=== PATIENT | female | born 1975 | race Caucasian/White ===

== ENCOUNTER → 2019-01-21 | Outpatient (CLI) | payer OTHER, SELFPAY ==
--- NOTE | 2019-01-21 15:38 | VDLE_ITS ---
Reason For Study: LLE Pain/Swelling RIGHT LEFT CFV is compressible, spontaneous, phasic, GSV is normal. competent and demonstrates normal CFV is compressible, spontaneous, phasic, augmentation. competent, and demonstrates normal Procedure augmentation. Exam performed in department. FV is compressible, spontaneous, phasic, A preliminary report was called and/or faxed competent and demonstrates normal to Courtney Lopez CROP RESEARCH SCIENTIST. augmentation. POP V is compressible, spontaneous, phasic, competent and demonstrates normal augmentation. T/P Trunk is compressible. PTV is compressible. LT PerV is compressible. Interpretation Summary Deep veins of the left lower extremity are patent and compressible segmentally. There is no evidence of left lower extremity deep vein thrombosis. Valvular competence appears intact within the proximal deep venous system on the left . The left greater saphenous vein appears patent and compressible segmentally. Ordering Physician: Courtney Lopez Referring Physician: Courtney Lopez INSTRUMENT LENS INSPECTOR Performed By: Audra Tsang, YUMIKO, RVT
== END | disposition home or self-care (01) ==
LOC: CVS 15:31
PROVIDERS: Referring Provider Nurse Practitioner; Visit Provider Nurse Practitioner
DX: M79.89 Other specified soft tissue disorders (principal); M79.662 Pain in left lower leg; D68.62 Lupus anticoagulant syndrome
CPT/HCPCS: 93971

== ENCOUNTER 2019-06-10 01:48 | Emergency (ER) | payer OTHER, SELFPAY ==
[2019-06-10 01:49] VITALS: BP 136/86; PULSE 78; RESP 18; TEMP 36.9; O2SAT 97; BMI 39.2
[2019-06-10 01:53] VITALS: BP 136/86; PULSE 78; RESP 18; TEMP 36.9; O2SAT 97
--- NOTE | 2019-06-10 01:54 | ED.VIS.DENTA ---
History of Present Illness Chief Complaint: Dental Informant: Patient Onset: Days Context: Sudden Onset Timing: Continuous Quality: Pain Location: Upper teeth Current Severity: Mild Maximum Severity: Severe Worsened by: Chewing, cold liquids Relieved by: - - She states she is taking 1-2 ibuprofen tablets every 4 hours with no improvement. Associated Symptoms: Cold, - - She denied fever, facial swelling, rash or sensitivity to hot. Narrative: Patient is a 43-year-old woman who presents with dental pain that started yesterday. She states she has an appointment to see a dentist to have her teeth extracted. She denies fever or chills. She denies night sweats. She denies ocular, visual or auditory symptoms. She denies history rheumatic fever. States she has a heart murmur. She denies mitral valve prolapse. She is on no medications suppress her immune system and she denies IV drug use. She denies any facial swelling. She denies difficulty opening or closing her mouth completely. She denies change in voice. Prior similar symptoms: Yes Recent Illness/Hospitalization: No - Past Medical History (1) History of cardiac murmur Status: Acute Past Medical History - Allergies and Home Meds Allergies/Adverse Reactions: Allergies oxycodone [From OxyContin] Allergy (Verified 06/10/19 01:52) Rash Primary Care Physician: Care Physician,No Primary [Primary Care Provider] - Prior records reviewed: Yes Lives: Spouse/ Significant Other Smoking Status: Never smoker Alcohol: None Drugs: None Review of Systems General: Denies: Chills, Fever, Malaise, Subjective, Sweats, Weight loss, - Eyes: Denies: Visual changes - bilaterally, Blurred Vision - bilaterally ENT: Denies: Bilateral ear pain, Rhinorrhea, Sore throat Cardiovascular: Denies: Chest pain, Palpitations Respiratory: Denies: Dyspnea, Cough, Dyspnea on exertion Gastrointestinal: Denies: Nausea, Vomiting Musculoskeletal: Denies: Myalgias, Arthralgias, Neck pain, Back pain Skin: Denies: Rash, Wounds Neurological: Denies: Headache Hematologic: Denies: Easy bruising, Easy bleeding Allergy: Denies: Uticaria, Swelling of the mouth, Swelling of the tongue Physical Exam Vital Signs/Narrative: Vital Signs Temp Pulse Resp BP Pulse Ox 06/10/19 01:53 98.4 F 78 18 136/86 H 97 06/10/19 01:49 98.4 F 78 18 136/86 H 97 Inital Vital Signs reviewed: Yes General: Well nourished, Well developed, Unkempt Head: Normocephalic, Atraumatic ENT: Moist mucous membranes, Nasal congestion, No nasal trauma, No rhinorrhea, Sinus tenderness, TM's clear Mouth/Throat: Normal oral mucosa, Normal posterior oropharynx, No sublingual edema, Normal Stensen's duct, Gingivitis, Tenderness on tooth percussion, Widespread dental decay, - - Patient has numerous upper teeth right and left that have caries with exposure of dentin and several are eroded to the gumline. There is no evidence of periodontal abscess. There is no evidence of facial swelling or cellulitis.. Negative for: Normal inspection lips/gums, No dental tenderness, Apthous ulcer, Dental trauma, Focal gum swelling, Trismus Neck: Supple, No lymphadenopathy, Nontender, No JVD. Negative for: Anterior submandibular lymphadenopathy, Posterior submandibular lymphadenopathy, Anterior submental lymphadenopathy, Posterior submental lymphadenopathy, Soft tissue swelling, Submandibular soft tissue swelling, Submental soft tissue swelling Cardiovascular: Regular rate, Regular rhythm, No murmurs, Normal S1, Normal S2 Respiratory: No distress, CTA bilaterally, Chest nontender Extremities: Nontender, No edema Skin: Normal color, No rash. Negative for: Cyanosis, Diaphoresis, Jaundice, No Trauma Neurological: Alert, Oriented x3, Cranial nerves II-XII grossly intact, Normal Strength, Normal Sensation, Normal Gait Psychological: Normal affect Diagnostic/Tx/Re-eval - Medical Decision Making Patient has numerous caries with exposure of dentin and pulp. Since she reports sensitivity to cold she probably has reversible pulpitis as well. Suspect patient has dental caries. Will place on penicillin. She reports allergy to oxycodone. This limits pain medicine. Will treat with Naprosyn. She was instructed to contact dentist to have her appointment moved up. ED Disposition - Plan for ED Patient: Disposition: Home or Assisted Living Diagnosis: Reversible pulpitis, Dental caries extending into pulp, Dental caries extending into dentin, Apical alveolar abscess Instructions: Dental Abscess, Dental Cavity Prescriptions: Naproxen [Naprosyn] 500 mg PO BID #20 tab Prescription Printed Penicillin V Potassium 500 mg PO 4X/DAY #40 tab Prescription Printed Referrals: Care Physician,No Primary [Primary Care Provider] - Additional Instructions: Contact dentist is ask if the appointment can be moved up. Take medication as directed until gone. If you develop facial swelling, redness or difficulty opening or closing her mouth completely return to the emergency department immediately.
[2019-06-10] MEDS: Penicillin Vk 250 MG Tablet 500 MG PO (02:09)
[2019-06-10] MEDS: Naproxen 250 MG Tablet 500 MG PO (02:09)
== END 2019-06-10 02:15 | disposition home or self-care (01) ==
LOC: ED 02:15
PROVIDERS: Emergency Provider Emergency Medicine
DX: K04.7 Periapical abscess without sinus (principal); K04.01 Reversible pulpitis; K02.9 Dental caries, unspecified
CPT/HCPCS: 99283

== ENCOUNTER 2019-09-28 13:56 | Emergency (ER) | payer OTHER, SELFPAY ==
[2019-09-28 13:58] VITALS: BP 131/82; PULSE 81; RESP 16; TEMP 36.9; BMI 38.9
--- NOTE | 2019-09-28 14:17 | ED.VISSUMM ---
- ER Visit Summary Date of Service: 09/28/19 Chief Complaint: Dental pain History of Present Illness: The patient is a 43 F who presents with left upper dental pain that has been getting worse since yesterday. Patient states she went to an urgent care yesterday and was given a prescription for Pen-Vee K. Patient states that today she feels like the swelling is getting worse. Patient is concerned that she may be allergic to the penicillin. Patient denies any fevers or chills. Patient denies any difficulty breathing or difficulty swallowing. Physical Examination: Vital signs are stable. Patient is afebrile here. Patient is in no acute distress. Oral mucosa is pink and moist. Oropharynx is clear. There are multiple dental caries noted. There is no abscess formation. There is tenderness over the left maxillary area. There is no sublingual edema or signs of Magen angina. Neck is supple. Trachea is midline. There is no JVD or lymphadenopathy noted. Heart was regular rate and rhythm. Lungs are clear and equal bilaterally. Abdomen is soft and nontender. Cranial nerves II through XII are intact. There are no focal motor or sensory deficits noted. Emergency Department Course and Treatment: Patient was given an injection of Toradol here. Patient was instructed to continue her Pen-Vee K as previously prescribed. It is too early in the course to change antibiotics at this time. Patient was advised that this is not an allergic reaction, it is a progression of the infection. Patient was instructed to continue Tylenol or ibuprofen as needed for pain. Patient was instructed to follow-up with her dentist in 5 to 7 days. Patient understood and was agreeable with the plan. All questions were answered. Disposition: Discharge home Impression: 1. Infected dental caries This note was generated with Pre[employer]ently dictation software. It may contain incorrect words, spelling, and punctuation that were not noted in review of the chart prior to signing ED Disposition - Plan for ED Patient: Disposition: Home or Assisted Living Diagnosis: Infected dental caries Instructions: Dental Cavity Referrals: Care Physician,No Primary [Primary Care Provider] - Dentist,Your [STAFF PHYSICIAN] - 3-5 Days
[2019-09-28] MEDS: Ketorolac 60 MG/2 ML Vial IM (14:24)
== END 2019-09-28 14:44 | disposition home or self-care (01) ==
LOC: ED 14:22
PROVIDERS: Emergency Provider Emergency Medicine
DX: K04.7 Periapical abscess without sinus (principal); E66.9 Obesity, unspecified
CPT/HCPCS: 96372; 99282

== ENCOUNTER 2020-01-11 18:42 | Emergency (ER) | payer OTHER, SELFPAY ==
[2020-01-11 18:43] VITALS: BP 121/71; PULSE 85; RESP 15; TEMP 36.7; O2SAT 96; BMI 39.5
--- NOTE | 2020-01-11 18:59 | CT_ITS ---
INDICATION: LT PINNA INFECTION -- LEFT EAR SWOLLEN/RED EXAMINATION: CT IAC TEMPORAL BONES - CT IACs W/ Contrast Injection TECHNIQUE:Routine noncontrast CT protocol was performed of the internal auditory canals and temporal bones. 2-D reformats were performed by the technologist. A radiation dose optimization technique was used for this scan. IV Contrast dosage and agent: None. COMPARISON: None. FINDINGS: RIGHT SIDE: No fracture. SUPERFICIAL SOFT TISSUES: Unremarkable. MASTOID AIR CELLS: Well aerated, unremarkable. EXTERNAL AUDITORY CANALS: Clear. MIDDLE EAR CAVITIES: Well aerated. Ossicles and scutum intact. INTERNAL AUDITORY CANALS: Unremarkable bilateral internal auditory canals. No osseous erosion or widening of the canal. INNER EAR: Unremarkable cochlea, vestibule and semicircular canals. LEFT SIDE: No fracture. SUPERFICIAL SOFT TISSUES: There is soft tissue swelling and subcutaneous stranding of the pinna and adjacent possibly in the parotid gland which is incompletely imaged but appears enlarged compared with the right. MASTOID AIR CELLS: Well aerated, unremarkable. EXTERNAL AUDITORY CANALS: Clear. MIDDLE EAR CAVITIES: Well aerated. Ossicles and scutum intact. INTERNAL AUDITORY CANALS: Unremarkable bilateral internal auditory canals. No osseous erosion or widening of the canal. INNER EAR: Unremarkable cochlea, vestibule and semicircular canals. VISUALIZED BRAIN AND POSTERIOR FOSSA: Cerebello-pontine angles are unremarkable. CT/Orb Sella Post Fossa Ear W/CON IMPRESSION: Soft tissue swelling and inflammation left periauricular region possibly including the left parotid gland. No abscess. Clinical correlation required. Dedicated CT soft tissue neck may be helpful. Otherwise normal temporal bone. Electronically Signed: Demian Munguia MD at 20:02 EDT , Service support ,
--- NOTE | 2020-01-11 19:01 | ED.VIS.GEN ---
History of Present Illness Chief Complaint: Ear Problem Informant: Patient Onset: Days - 3- Context: Gradual Onset Timing: Continuous Quality: sore Location: left external ear Current Severity: Moderate Maximum Severity: Moderate Worsened by: palpation Relieved by: leaving alone Associated Symptoms: black spots behind ear now. not getting better on Abx. Narrative: Patient states she spontaneously developed pain, redness, swelling behind her left ear, she went to an ER in [place] and was empirically prescribed Augmentin and Bactrim that she has been taking for the third day now, and it seems to be getting worse. She denies any fevers or systemic symptoms. No discharge. No other symptoms. She called her doctor and was advised to come to this ER for reevaluation. She denies any problems inside of her ear or problems hearing. She is not a diabetic. 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 She states she has had no piercing in this left ear for the past 10 years. She denies any injury to this area recently or any obvious reason that could be related to the onset of symptoms there. - Past Medical History (1) History of cardiac murmur Status: Chronic Past Medical History - Allergies and Home Meds Allergies/Adverse Reactions: Allergies oxycodone [From OxyContin] Allergy (Verified 01/11/20 18:47) Rash Primary Care Physician: Kevyn Wu MD [Primary Care Provider] - Smoking Status: Never smoker Drugs: None Review of Systems General: Denies: Chills, Fever, Malaise, Sweats Eyes: Denies: Visual changes - bilaterally, Diplopia ENT: Reports: Left ear pain. Denies: Rhinorrhea, Sore throat Cardiovascular: Denies: Chest pain, Palpitations Respiratory: Denies: Dyspnea, Cough, Dyspnea on exertion Gastrointestinal: Denies: Abdominal pain, Nausea, Vomiting, Diarrhea, Melena, Hematochezia Genitourinary: Denies: Dysuria, Hematuria, Frequency Musculoskeletal: Denies: Back pain, Extremity Pain Skin: Reports: Rash - Left ear redness. Denies: Wounds Neurological: Denies: Headache, Weakness, Numbness Physical Exam Vital Signs/Narrative: Vital Signs Temp Pulse Resp BP Pulse Ox 01/11/20 18:43 98.1 F 85 15 121/71 H 96 Inital Vital Signs reviewed: Yes General: Well nourished, Well developed, Obese, No Acute Distress Head: Normocephalic, Atraumatic Eyes: Perrl, EOMI ENT: Moist mucous membranes, No rhinorrhea Neck: Supple, Nontender, No lymphadenopathy - Mild tender left posterior cervical lymphadenopathy only Respiratory: No distress Skin: Normal color, No Trauma, Rash - Mildly swollen tender erythema to the posterior aspect of the left ear pinna, mostly caudal, including the posterior aspect of the earlobe where there is an old healed up piercing. At the anterior aspect of the lobe, the exam is very benign and the healed wound appears to be uninvolved in the infection. However posterior to this, there are 3 or 4 subcentimeter very small spots of what appear to be black scab. They are separate from each other. There is no subcutaneous emphysema, obvious abscess, although just posterior and caudal to this, almost below the earlobe, there is continuation of the erythema with some mild induration but no fluctuance or obvious abscess, no pointing. The mastoid processes uninvolved and nontender. The rest of the pinna is uninvolved and benign. The tragus is uninvolved and nontender. Anteriorly, the ear almost looks normal except for mild erythema along the external rim of the pinna at the caudal aspect, which is the beginning of this process which is mostly posterior. The rest of the HEENT exam is unremarkable.. Negative for: No rash Neurological: Alert, Oriented x3, Cranial nerves II-XII grossly intact, Normal Strength, Normal Sensation, Normal Gait Psychological: Normal affect, Normal Mood Diagnostic/Tx/Re-eval - Medical Decision Making I think the patient is on appropriate antibiotics to empirically treat a focal skin infection that could be MRSA or strep. However she appears to potentially be failing this and she is on her third day of the medication. Therefore CT is thought to be reasonable of this area with IV contrast to rule out the possibility of an abscess, which is not obviously present clinically. In addition, she was empirically given vancomycin 15 mg/kg IV. She tolerated this well. Labs were normal as above, CT is consistent with cellulitis without any signs of an abscess. Given the involvement of tissues near the parotid gland, I evaluated this closer, she does not have tenderness of the parotid gland or swelling overlying this, and there is no discharge from Stensen's duct with massage of the gland. I think the patient is on adequate coverage for empiric cellulitis coverage, and I do not think she has necrotizing fasciitis. The cellulitis looks no different than it did at the beginning of her visit/initial evaluation. I discussed this with her. She is reassured and advised to continue the antibiotic she is on, and follow-up with ENT if things do not improve. She is comfortable with that plan. ED Disposition - Plan for ED Patient: Disposition: Home or Assisted Living Diagnosis: Cellulitis of left earlobe Instructions: ED Cellulitis Referrals: Kevyn Wu MD [Primary Care Provider] - Sven Hua MD [STAFF PHYSICIAN] - (or any of the other ENT doctors if not improving in 3-5 days) Additional Instructions: Continue your current antibiotics as prescribed until finished. He received vancomycin 15 mg/kg IV while in the emergency department, which will hopefully help resolve your infection.
[2020-01-11] MEDS: 0.9% Normal Saline 1,000 ML 999 ML IV (19:18)
[2020-01-11 19:31] LABS: Absolute Lymphocyte Count 1.36 X10^3/uL (0.83-4.51); Absolute Neutrophil Count 3.8 X10^3/uL (2.0-7.7); Basophil# 0.03 X10^3/uL; Basophil% 0.5 % (0-1); Eosinophil# 0.18 X10^3/uL; Hematocrit 40.8 % (37-47); Lymphocyte # 1.36 X10^3/ul (4.0); Lymphocyte % 22.9 % (19-41); Mean Corp Hgb Conc 34.3 g/dL (32-36); Mean Corpuscular Volume 90.5 fL (81-99); Monocyte% 10.1 % (0-10); NRBC Flagged by Analyzer 0 % (0-5); Neutrophil # 3.75 X10^3/uL (2.7-7.7); Neutrophil % 63.2 % (47-70); Platelet Count 160 K/mm3 (150-450); RBC Distribution Width CV 12.2 % (11.6-14.6); RBC Distribution Width SD 40.1 fl (35.1-43.9); Red Blood Count 4.51 M/mm3 (4.2-5.4); White Blood Count 5.9 K/mm3 (4.4-11.0)
[2020-01-11 19:32] LABS: Anion Gap 4 (5-15); BUN 14 mg/dL (7-18); Calcium,Total 8.5 mg/dL (8.5-10.1); Chloride 109 mmol/L (98-107); Creatinine, Serum 0.82 mg/dL (0.55-1.02); EST Glomerular Filtration Rate 80 mL/min (>60); Est Glom Filt Rate - Afr Amer 97 mL/min (>60); Glucose 100 mg/dL (74-106); Potassium 3.9 mmol/L (3.5-5.1); Sodium Level 139 mmol/L (136-145)
[2020-01-11 21:55] VITALS: BP 124/79; PULSE 72; RESP 16; O2SAT 97
[2020-01-11 22:41] VITALS: BP 124/79; PULSE 72; RESP 16; O2SAT 97
== END 2020-01-11 22:42 | disposition home or self-care (01) ==
PROVIDERS: Emergency Provider Emergency Medicine; PCP Internal Medicine
DX: H60.12 Cellulitis of left external ear (principal); Z79.2 Long term (current) use of antibiotics; E66.9 Obesity, unspecified
CPT/HCPCS: 70481; 80048; 85025; 96361; 96365; 96366; 99283; J7030; J7040; Q9967

== ENCOUNTER 2021-06-02 21:35 | Emergency (ER) | payer OTHER, SELFPAY ==
[2021-06-02 21:35] VITALS: BP 128/87; PULSE 92; RESP 18; TEMP 38.1; O2SAT 100; BMI 40.3
--- NOTE | 2021-06-02 22:08 | EKG12_ITS ---
Test Reason : DYSRYTHMIA Blood Pressure : / mmHG Vent. Rate : 092 BPM Atrial Rate : 092 BPM P-R Int : 172 ms QRS Dur : 088 ms QT Int : 360 ms P-R-T Axes : 034 -07 034 degrees QTc Int : 445 ms Normal sinus rhythm Normal ECG Confirmed by VILMA DIETZ, FORD ([id number]), society editor SHAYAN VILLAGOMEZ ([id number]) on 06/04/2021 8:39:59 AM Referred By: CHANELLE Confirmed By:FORD ESPARZA MD
--- NOTE | 2021-06-02 22:16 | EDS_ITS ---
HPI History of Present Illness Chief Complaint: General Illness Narrative Narrative: Patient presents with nausea, intermittent fevers and upper airway congestion for the past few days. She has no shortness of breath. She has an intermittent dry cough. No abdominal pain, no urinary symptoms. She has no neck pain or stiffness. No rash. She denies any abdominal pain nausea vomiting or diarrhea. [facility], [facility] Home Medications NK 06/02/21 [History Last Taken Unknown] Allergy/AdvReac Type Severity Reaction Status Date / Time oxycodone [From OxyContin] Allergy Rash Verified 06/02/21 21:37 Surgical History (Updated 06/02/21 @ 22:14 by Ledy Jennings) History of hysterectomy Social History Smoking Status: Never smoker ROS ROS ED ROS Narrative Past medical history: Reviewed Medications: Reviewed Social history: Noncontributory Review of systems: All systems negative except as indicated General: Fever as in HPI Eyes: No visual changes ENT: Upper airway congestion as in HPI Neck: No neck pain Cardiovascular: No chest pain Respiratory: No shortness of breath or cough Gastrointestinal: No abdominal pain. Some nausea. Genitourinary: No dysuria Musculoskeletal: Denies myalgias no difficulty with ambulation Skin: No rash Neurological: No memory loss, confusion or any focal weakness Psych: No recent behavioral changes Hematologic: No easy bleeding or easy bruising EXAM Physical Exam Narrative Exam Narrative: Physical exam General: Patient appears relatively comfortable. Head: Normocephalic, Atraumatic Eyes: Conjunctiva not pale ENT: Moist mucous membranes. There is some upper airway congestion and rhinorrhea, slightly swollen nasal turbinates and some postnasal drip. Soft palate is normal. Neck: Supple, Nontender, No lymphadenopathy Cardiovascular: Regular rate, Regular rhythm Respiratory: No distress, CTA bilaterally Abdomen: Soft, Nontender, Nondistended Back: Nontender, Normal Inspection. Negative for: CVA tenderness Extremities: Nontender, No edema Skin: Normal color, No rash Neurological: Alert, Normal Strength, Normal Sensation Psychological: Normal affect Const Vital Signs: 06/02/21 21:35 06/02/21 22:16 Temperature 100.5 F H Temperature Source Temporal Pulse Rate 92 Respiratory Rate 18 Respiratory Effort Normal Non-Labored Respiratory Pattern Normal Blood Pressure 128/87 H Blood Pressure Mean 100 Pulse Ox 100 Oxygen Delivery Method Room Air MDM MDM MDM Narrative Medical decision making narrative: Patient is found to have COVID-19. She otherwise appears well. She is not desaturating. I believe she can be safely discharged home. If anything worsen she is to return. She is told to stay off work and to call her employer since it is likely that she got Covid from her job especially that she tells me she works 7 days a week for 12-hour shifts. Lab Data Labs: Laboratory Results - last 24 hr 06/02/21 06/02/21 06/02/21 22:20 22:20 23:00 WBC Cancelled 5.0 Corrected WBC Cancelled RBC Cancelled 4.41 Hgb Cancelled 13.5 Hct Cancelled 39.8 MCV Cancelled 90.2 MCH Cancelled 30.6 MCHC Cancelled 33.9 RDW Std Deviation Cancelled 41.6 RDW Coeff of Ángela Cancelled 12.5 Plt Count Cancelled 111 L MPV Cancelled 11.9 Immature Gran % (Auto) Cancelled 1.200 H Neut % (Auto) Cancelled 71.9 H Lymph % (Auto) Cancelled 17.5 L [place] % (Auto) Cancelled 7.6 Eos % (Auto) Cancelled 1.4 Baso % (Auto) Cancelled 0.4 Absolute Neuts (auto) Cancelled 3.6 Absolute Lymphs (auto) Cancelled 0.87 Total Counted Cancelled Neutrophils % (Manual) Cancelled Band Neutrophils % Cancelled Lymphocytes % (Manual) Cancelled Monocytes % (Manual) Cancelled Eosinophils % (Manual) Cancelled Basophils % (Manual) Cancelled Metamyelocytes % Cancelled Myelocytes % Cancelled Promyelocytes % Cancelled Blast Cells % Cancelled Plasma Cell % (Manual) Cancelled Other Cells % Cancelled Nucleated RBC % Cancelled 0 Nucleated RBCs/100 WBC Cancelled Differential Comment Cancelled Diff Path Review Cancelled Hypersegmented Neuts Cancelled Atypical Lymphocytes Cancelled Reactive Lymphocytes Cancelled Smudge Cells Cancelled Toxic Granulation Cancelled Toxic Vacuolation Cancelled Dohle Bodies Cancelled Karina Rods Cancelled Platelet Estimate Cancelled Plt Morphology Comment Cancelled RBC Morphology Cancelled Polychromasia Cancelled Hypochromasia Cancelled Poikilocytosis Cancelled Basophilic Stippling Cancelled Anisocytosis Cancelled Microcytosis Cancelled Macrocytosis Cancelled Spherocytes Cancelled Sickle Cells Cancelled Target Cells Cancelled Tear Drop Cells Cancelled Ovalocytes Cancelled Stomatocytes Cancelled Velazquez-[place] Bodies Cancelled Alysia Cells Cancelled Bite Cells Cancelled Crenated Cell Cancelled Acanthocytes (Spur) Cancelled Rouleaux Cancelled Schistocytes Cancelled Sodium 138 Potassium 3.5 Chloride 105 Carbon Dioxide 28.0 Anion Gap 5 BUN 7 Creatinine 0.65 Estim Creat Clear Calc 109.09 Est GFR (MDRD) Af Amer 127 Est GFR (MDRD) Non-Af 105 BUN/Creatinine Ratio 10.8 Glucose 109 H Calcium 8.3 L Total Bilirubin 0.30 AST 21 ALT 34 Alkaline Phosphatase 80 Total Protein 7.6 Albumin 3.5 Globulin 4.1 Albumin/Globulin Ratio 0.9 Urine Color Urine Clarity Urine pH Ur Specific [place] Urine Protein Urine Glucose (UA) Urine Ketones Urine Occult Blood Urine Nitrite Urine Bilirubin Urine Urobilinogen Ur Leukocyte Esterase Urine RBC Urine WBC Ur Squamous Epith Cells Urine Bacteria Urine Mucus 06/02/21 23:25 WBC Corrected WBC RBC Hgb Hct MCV MCH MCHC RDW Std Deviation RDW Coeff of Ángela Plt Count MPV Immature Gran % (Auto) Neut % (Auto) Lymph % (Auto) [place] % (Auto) Eos % (Auto) Baso % (Auto) Absolute Neuts (auto) Absolute Lymphs (auto) Total Counted Neutrophils % (Manual) Band Neutrophils % Lymphocytes % (Manual) Monocytes % (Manual) Eosinophils % (Manual) Basophils % (Manual) Metamyelocytes % Myelocytes % Promyelocytes % Blast Cells % Plasma Cell % (Manual) Other Cells % Nucleated RBC % Nucleated RBCs/100 WBC Differential Comment Diff Path Review Hypersegmented Neuts Atypical Lymphocytes Reactive Lymphocytes Smudge Cells Toxic Granulation Toxic Vacuolation Dohle Bodies Karina Rods Platelet Estimate Plt Morphology Comment RBC Morphology Polychromasia Hypochromasia Poikilocytosis Basophilic Stippling Anisocytosis Microcytosis Macrocytosis Spherocytes Sickle Cells Target Cells Tear Drop Cells Ovalocytes Stomatocytes Velazquez-[place] Bodies Alysia Cells Bite Cells Crenated Cell Acanthocytes (Spur) Rouleaux Schistocytes Sodium Potassium Chloride Carbon Dioxide Anion Gap BUN Creatinine Estim Creat Clear Calc Est GFR (MDRD) Af Amer Est GFR (MDRD) Non-Af BUN/Creatinine Ratio Glucose Calcium Total Bilirubin AST ALT Alkaline Phosphatase Total Protein Albumin Globulin Albumin/Globulin Ratio Urine Color Yellow Urine Clarity Clear Urine pH 7.0 Ur Specific [place] 1.015 Urine Protein Negative Urine Glucose (UA) Normal Urine Ketones Negative Urine Occult Blood Negative Urine Nitrite Negative Urine Bilirubin Negative Urine Urobilinogen Normal Ur Leukocyte Esterase Negative Urine RBC 0 SEEN Urine WBC 0 SEEN Ur Squamous Epith Cells 0 SEEN Urine Bacteria RARE Urine Mucus 0 SEEN Radiography Diagnostic Testing: Radiology Impression Chest X-Ray 06/02/21 22:40 IMPRESSION: There is mild bibasilar listhesis/infiltrate. There is no focal consolidation identified. Electronically Signed: Puneet Owens MD at 23:09 EDT Tel , Service support , Discharge Plan Triage Chief Complaint: General Illness ED Provider: Germán Lugo Dx/Rx/DC Orders Clinical Impression: COVID Instructions: Coronavirus Disease 2019 (COVID-19): Overview Prescriptions: No Action NK RF: 0 Primary Care Provider: Kevyn Wu Referrals: Kevyn Wu MD [Primary Care Provider] - 2 Days Disposition Disposition: Home, Self Care
[2021-06-02] MEDS: 0.9% Normal Saline 1,000 ML 1000 ML IV (22:36)
[2021-06-02] MEDS: Ondansetron 4 MG/2 ML Vial IV (22:36)
--- NOTE | 2021-06-02 22:40 | RAD_ITS ---
STUDY: X-RAY CHEST REASON FOR EXAM: Female, 45 years old. cough TECHNIQUE: Single frontal view of the chest. COMPARISON: None. FINDINGS: Low lung volumes. No pneumothorax or pleural effusion. Mild bibasilar atelectasis. Normal size heart. Normal mediastinum and libertad. Normal visualized pulmonary arteries. Normal visualized aortic arch and descending thoracic aorta. There are diffuse degenerative changes of the visualized thoracic spine. Scoliotic curvature to the spine. There is no demonstrated abnormality of the visualized soft tissue structures of the upper abdomen. RAD/Chest 1 View (Portable) IMPRESSION: There is mild bibasilar listhesis/infiltrate. There is no focal consolidation identified. Electronically Signed: Puneet Owens MD at 23:09 EDT Tel , Service support ,
[2021-06-02 22:53] LABS: ALB/GLOB Ratio 0.9 RATIO (0.9-2.4); AST(SGOT) 21 U/L (15-37); Alanine Aminotransfer ALT/SGPT 34 U/L (13-56); Albumin, Serum 3.5 g/dL (3.2-5.0); Alkaline Phosphatase 80 U/L (45-117); Anion Gap 5 (5-15); BUN 7 mg/dL (7-18); BUN/Creat Ratio 10.8 RATIO (10-20); Calcium,Total 8.3 mg/dL (8.5-10.1); Chloride 105 mmol/L (98-107); Creatinine, Serum 0.65 mg/dL (0.55-1.02); EST Glomerular Filtration Rate 105 mL/min (>60); Est Glom Filt Rate - Afr Amer 127 mL/min (>60); Estimated Creatinine Clearance 109.09 ml/min; Globulin 4.1 g/dL (2.2-4.2); Glucose 109 mg/dL (74-106); Potassium 3.5 mmol/L (3.5-5.1); Protein, Total 7.6 g/dL (6.4-8.2); Sodium Level 138 mmol/L (136-145)
[2021-06-02 23:30] LABS: Mucous, Urine 0 SEEN /hpf (<or=2+); Red Blood Cells-Urine 0 SEEN /hpf (0-5); Squamous Epithelial Cells - UA 0 SEEN /hpf (5-10); White Blood Cells 0 SEEN /hpf (0-5)
[2021-06-02 23:38] LABS: Absolute Lymphocyte Count 0.87 X10^3/uL (0.83-4.51); Absolute Neutrophil Count 3.6 X10^3/uL (2.0-7.7); Basophil# 0.02 X10^3/uL; Basophil% 0.4 % (0-1); Eosinophil# 0.07 X10^3/uL; Eosinophils% 1.4 % (0-5); Hematocrit 39.8 % (37-47); Hemoglobin 13.5 g/dL (12.0-15.0); Lymphocyte # 0.87 X10^3/ul (0.83-4.51); Lymphocyte % 17.5 % (19-41); Mean Corp Hgb Conc 33.9 g/dL (32-36); Mean Corpuscular Hgb 30.6 pg (27.0-32.0); Mean Corpuscular Volume 90.2 fL (81-99); Mean Platelet Vol. 11.9 fl (6.2-12.0); Monocyte# 0.38 X10^3/uL; Monocyte% 7.6 % (0-10); NRBC Flagged by Analyzer 0 % (0-5); Neutrophil # 3.58 X10^3/uL (2.7-7.7); Neutrophil % 71.9 % (47-70); Platelet Count 111 K/mm3 (150-450); RBC Distribution Width CV 12.5 % (11.6-14.6); RBC Distribution Width SD 41.6 fl (35.1-43.9); Red Blood Count 4.41 M/mm3 (4.2-5.4)
[2021-06-02 23:39] LABS: Color, Urine Yellow (Yellow); Glucose, Dipstick Normal (Normal); Ketone-Dipstick Negative (Negative); Leukocyte Esterase-Dipstick Negative /ul (Negative); Nitrite-Dipstick Negative (Negative); Occult Blood-Urine Negative /ul (Negative); Protein-Dipstick Negative (Negative); Specific Gravity, Urine 1.015 (1.002-1.030); Urine Bilirubin Dipstick Negative (Negative); Urine Clarity Clear (Clear); Urine Urobilinogen Normal (Normal)
[2021-06-02 23:45] LABS: Bacteria RARE /hpf (None Seen)
[2021-06-03 00:20] VITALS: BP 134/99; PULSE 89; RESP 15; O2SAT 96
== END 2021-06-03 00:21 | disposition home or self-care (01) ==
PROVIDERS: Emergency Provider Emergency Medicine; PCP Internal Medicine
DX: U07.1 COVID-19 (principal)
CPT/HCPCS: 71045; 80053; 81001; 85025; 87426; 93005; 96361; 96374; 99283; J2405

== ENCOUNTER 2021-06-07 00:18 | Emergency (ER) | payer OTHER, SELFPAY ==
[2021-06-07] VITALS (7 sets, daily range): BP systolic 115–123; BP diastolic 68–72; PULSE 83–90; RESP 21–27; TEMP 37.6; O2SAT 91–95; BMI 39.1
--- NOTE | 2021-06-07 00:28 | EKG12_ITS ---
Test Reason : SOB Blood Pressure : / mmHG Vent. Rate : 086 BPM Atrial Rate : 086 BPM P-R Int : 164 ms QRS Dur : 090 ms QT Int : 384 ms P-R-T Axes : 038 -03 036 degrees QTc Int : 459 ms Normal sinus rhythm Normal ECG Confirmed by MIKE DIETZ, XAVIER ([id number]), avid editor SHAYAN VILLAGOMEZ ([id number]) on 06/11/2021 8:22:45 AM Referred By: PL Confirmed By:KATEY MCKEON MD
[2021-06-07 00:37] LABS: Absolute Lymphocyte Count 1.34 X10^3/uL (0.83-4.51); Absolute Neutrophil Count 2.6 X10^3/uL (2.0-7.7); Basophil# 0.01 X10^3/uL; Basophil% 0.2 % (0-1); Eosinophil# 0.01 X10^3/uL; Eosinophils% 0.2 % (0-5); Hemoglobin 14.4 g/dL (12.0-15.0); Lymphocyte # 1.34 X10^3/ul (0.83-4.51); Lymphocyte % 30.8 % (19-41); Mean Corp Hgb Conc 34.3 g/dL (32-36); Mean Corpuscular Hgb 30.2 pg (27.0-32.0); Mean Corpuscular Volume 88.1 fL (81-99); Mean Platelet Vol. 11.9 fl (6.2-12.0); Monocyte# 0.39 X10^3/uL; NRBC Flagged by Analyzer 0 % (0-5); Neutrophil # 2.59 X10^3/uL (2.7-7.7); Neutrophil % 59.6 % (47-70); Platelet Count 119 K/mm3 (150-450); RBC Distribution Width CV 12.3 % (11.6-14.6); Red Blood Count 4.77 M/mm3 (4.2-5.4); White Blood Count 4.4 K/mm3 (4.4-11.0)
[2021-06-07] MEDS: Ipratropium/Albuterol Sulfate 3 ML AMPUL.NEB INHALATION (00:39)
--- NOTE | 2021-06-07 00:43 | RAD_ITS ---
STUDY: X-RAY CHEST REASON FOR EXAM: Female, 45 years old. covid, SOB TECHNIQUE: Single AP portable view of the chest. COMPARISON: None. FINDINGS: Ill-defined subpleural groundglass opacities are seen more prominent in the lung bases , may represent atypical pneumonia or viral pneumonia (COVID-19 ?). There is no demonstrated pleural abnormality. Normal size heart. Normal mediastinum and libertad. Normal visualized pulmonary arteries. Normal visualized aortic arch and descending thoracic aorta. Normal visualized thoracic spine. Normal visualized ribs, clavicles, and shoulders. There is no demonstrated abnormality of the visualized soft tissue structures of the upper abdomen. RAD/Chest 1 View (Portable) IMPRESSION: Ill-defined subpleural groundglass opacities are seen more prominent in the lung bases , may represent atypical pneumonia or viral pneumonia (COVID-19 ?). Electronically Signed: Lazaro Cody MD at 1:33 EDT Tel , Service support ,
--- NOTE | 2021-06-07 00:48 | ED.VIS.DYS ---
HPI History of Present Illness Chief Complaint: Shortness of Breath Informant: patient Narrative Narrative: Of note, patient somewhat difficult to get the history from. He first told me that she did not and never had any medical problems. On review of systems I started discovering that she had a heart problem as a child. 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 The last time this was done she was about 29 years old. She also had a DVT after 1 of these procedures and was on unknown anticoagulation for an unknown period of time. Currently she is on no medicines. She is told me at first she had no nausea and vomiting but then stated she could not keep anything down and does have nausea and is vomiting. Patient started with symptoms of fevers myalgias and congestion about 7 days ago. She has been diagnosed with positive Covid. I think she might have had some vomiting but I am still not 100% sure. She does state that she is nauseated now though. She does state that her appetite is down and she is not eating and drinking much. She is had diarrhea. She also has cough. She does admit to being short of breath. She does not have chest pain. She did not get vaccinated. She is not familiar with monoclonal antibody treatment. PFSH PFS Home Medications ondansetron 4 mg PO Q8H PRN #10 tab 06/07/21 [Rx Last Taken Unknown] Allergy/AdvReac Type Severity Reaction Status Date / Time oxycodone [From OxyContin] Allergy Rash Verified 06/07/21 00:19 Surgical History History of hysterectomy Social History Smoking Status: Never smoker ROS ROS ED Constitutional Constitutional ED: Reports chills, fever(s) and sweats Eyes Eyes: Denies change in vision ENT ENT ED: Reports rhinorrhea; Denies sore throat Cardiovascular Cardiovascular: Denies chest pain, palpitations or racing heartbeat Respiratory/Chest Respiratory/Chest: Reports cough and dyspnea; Denies dyspnea on exertion or sputum Gastrointestinal Gastrointestinal: Reports diarrhea, nausea, vomiting and other Details: History is consistent on diarrhea. It is relatively consistent on nausea. I am not sure if she is actually had vomiting. ; Denies abdominal pain Genitourinary Genitourinary ED: Denies dysuria Musculoskeletal Musculoskeletal: Reports myalgias Integumentary Denies rash Neurologic Neurologic: Denies headache(s), paresthesias or weakness Endocrine Endocrinology: Denies polydipsia or polyuria Hematologic/Lymphatic Hematologic/Lymphatic: Denies easy bruising Allergic/Immunologic Allergic/Immunologic ED: Denies urticaria EXAM Physical Exam Const Vital Signs: 06/07/21 00:19 06/07/21 00:21 06/07/21 00:23 Temperature 99.7 F H 99.7 F H Temperature Source Temporal Temporal Pulse Rate 90 90 Respiratory Rate 21 H 21 H Respiratory Effort Short of Breath Labored Respiratory Pattern Blood Pressure 123/72 H 123/72 H Blood Pressure Mean 89 89 Pulse Ox 91 91 Oxygen Delivery Method Room Air Room Air Room Air 06/07/21 00:38 06/07/21 02:29 06/07/21 03:17 Temperature Temperature Source Pulse Rate 83 84 86 Respiratory Rate 22 H 27 H 27 H Respiratory Effort Respiratory Pattern Tachypnea Blood Pressure 115/68 118/72 Blood Pressure Mean 83 Pulse Ox 93 95 Oxygen Delivery Method Positive well nourished, well developed and obese General Appearance ED: well developed and NAD Nutritional Appearance: obese HEENT atraumatic Eyes PERRL Neck no lymphadenopathy and supple Neck Narrative: No stridor. Resp normal respiratory effort Resp Narrative: She does have a few coarse breath sounds bilaterally. Possibly a slight expiratory wheeze. It is gone with the respiratory treatment. Cardio regular rate, regular rhythm and no murmurs Cardio Narrative: By her history, I do not hear any murmur. GI non-tender and non-distended Palpation: soft Back/Spine no CVA tenderness Extremity normal to inspection General Extremety ED: Negative for tenderness Neuro oriented x3 Sensorium / Orientation: alert Psych mental status grossly normal MDM MDM MDM Narrative Medical decision making narrative: Blood work shows normal CBC. Electrolytes showed minimally during crease potassium. Lactate was normal. LFTs normal. D-dimer was mildly elevated. Considering she has Covid, dyspnea, history of DVT and elevated D-dimer we did do a CT scan of the chest. This showed findings consistent with Covid but no indication of acute pulmonary embolus. Patient saturations are running 94 5% in the room on room air. We walked her. She stayed between 91 and 94%. She did not drop but she would just go up and down between those 2. At this point, I do not see an indication to admit her. She is able to eat and drink. She has had some nausea. I will get her some meds for this. I also talked with her about monoclonal antibodies. I talked to her about this on my last visit and my first visit. I think she is somebody who could benefit. I will put in this order. Lab Data Labs: Laboratory Results - last 24 hr 06/07/21 06/07/21 06/07/21 00:22 00:22 00:35 WBC 4.4 RBC 4.77 Hgb 14.4 Hct 42.0 MCV 88.1 MCH 30.2 MCHC 34.3 RDW Std Deviation 40.0 RDW Coeff of Ángela 12.3 Plt Count 119 L MPV 11.9 Immature Gran % (Auto) 0.200 Neut % (Auto) 59.6 Lymph % (Auto) 30.8 Morehouse % (Auto) 9.0 Eos % (Auto) 0.2 Baso % (Auto) 0.2 Absolute Neuts (auto) 2.6 Absolute Lymphs (auto) 1.34 Nucleated RBC % 0 D-Dimer Quant (PE/DVT) Sodium 137 Potassium 2.9 L Chloride 104 Carbon Dioxide 28.0 Anion Gap 5 BUN 6 L Creatinine 0.60 Estim Creat Clear Calc 118.19 Est GFR (MDRD) Af Amer 138 Est GFR (MDRD) Non-Af 114 BUN/Creatinine Ratio 10.0 Glucose 113 H Lactic Acid 0.8 Calcium 8.3 L Total Bilirubin 0.40 AST 32 ALT 37 Alkaline Phosphatase 63 Troponin I High Sens 7 Total Protein 7.7 Albumin 3.2 Globulin 4.5 H Albumin/Globulin Ratio 0.7 L 06/07/21 00:45 WBC RBC Hgb Hct MCV MCH MCHC RDW Std Deviation RDW Coeff of Ángela Plt Count MPV Immature Gran % (Auto) Neut % (Auto) Lymph % (Auto) Morehouse % (Auto) Eos % (Auto) Baso % (Auto) Absolute Neuts (auto) Absolute Lymphs (auto) Nucleated RBC % D-Dimer Quant (PE/DVT) 0.59 H* Sodium Potassium Chloride Carbon Dioxide Anion Gap BUN Creatinine Estim Creat Clear Calc Est GFR (MDRD) Af Amer Est GFR (MDRD) Non-Af BUN/Creatinine Ratio Glucose Lactic Acid Calcium Total Bilirubin AST ALT Alkaline Phosphatase Troponin I High Sens Total Protein Albumin Globulin Albumin/Globulin Ratio Radiography Diagnostic Testing: Radiology Impression Chest X-Ray 06/07/21 00:43 IMPRESSION: Ill-defined subpleural groundglass opacities are seen more prominent in the lung bases , may represent atypical pneumonia or viral pneumonia (COVID-19 ?). Electronically Signed: Lazaro Cody MD at 1:33 EDT Tel , Service support , Chest CTA 06/07/21 01:35 IMPRESSION: 1. Patchy multilobar pulmonary infiltrates, with peripheral groundglass opacities. Findings are consistent with pneumonia, with typical features of COVID 19 infection. 2. No evidence of pulmonary embolism, but small segmental pulmonary emboli in the lower lobes are not excluded due to artifact caused by patient respiratory motion. 3. Cardiomegaly and evidence of chronic pulmonary arterial hypertension. Individualized dose optimization techniques were used for this CT. at 0250 Reported and signed by: Kristopher Pacheco MD Electronically Signed: Kristopher Pacheco MD at 2:49 EDT Tel , Service support , EKG Initial EKG: Comments: EKG done for dyspnea read by me shows a sinus rhythm with a rate of 86. No ventricular ectopy. No acute ST elevation or depression. AR interval, QRS duration and QTc are normal. Discharge Plan Triage Chief Complaint: Shortness of Breath ED Provider: Wang Mcginnis Dx/Rx/DC Orders Clinical Impression: COVID Instructions: Caring for Someone Who Has COVID-19 Prescriptions: New ondansetron 4 mg tablet,disintegrating 4 mg PO Q8H PRN (Reason: nausea and vomiting) Qty: 10 RF: 0 Other Ambulatory Orders: COVID Outpatient Monoclonal Antibody Referral (Routine) Location: None Selected Ordered By: Dr. Wang Mcginnis Primary Care Provider: Kevyn Wu Referrals: Kevyn Wu MD [Primary Care Provider] - 3-5 Days if not improving Disposition Disposition: Home, Self Care Discharge Date/Time: 06/07/21 03:21
[2021-06-07] MEDS: Ondansetron 4 MG/2 ML Vial IV (00:59)
[2021-06-07 01:00] LABS: ALB/GLOB Ratio 0.7 RATIO (0.9-2.4); AST(SGOT) 32 U/L (15-37); Alanine Aminotransfer ALT/SGPT 37 U/L (13-56); Albumin, Serum 3.2 g/dL (3.2-5.0); Alkaline Phosphatase 63 U/L (45-117); Anion Gap 5 (5-15); BUN 6 mg/dL (7-18); Calcium,Total 8.3 mg/dL (8.5-10.1); Chloride 104 mmol/L (98-107); EST Glomerular Filtration Rate 114 mL/min (>60); Est Glom Filt Rate - Afr Amer 138 mL/min (>60); Estimated Creatinine Clearance 118.19 ml/min; Globulin 4.5 g/dL (2.2-4.2); Glucose 113 mg/dL (74-106); Potassium 2.9 mmol/L (3.5-5.1); Protein, Total 7.7 g/dL (6.4-8.2); Sodium Level 137 mmol/L (136-145); Troponin-I HS 7 pg/mL (3.0-54.0)
[2021-06-07 01:11] LABS: Lactic Acid 0.8 mmol/L (0.4-1.9)
[2021-06-07 01:29] LABS: D-Dimer Quantitative (DVT/PE) 0.59 FEU/ug/m (0.27-0.49)
--- NOTE | 2021-06-07 01:35 | CT_ITS ---
EXAM: CT ANGIOGRAPHY CHEST WITHOUT AND WITH INTRAVENOUS CONTRAST : 1975 CLINICAL INDICATION: SOB, elevated D-Dimer -- ? PE TECHNIQUE: Helically acquired angiography images were obtained of the chest without and with intravenous contrast. This CT exam was performed using one or more of the following dose reduction techniques: automated exposure control, adjustment of the mA and/or kV according to patient size, and/or use of iterative reconstruction technique. This report was created using [employer] report generation technology. MIP reconstructed images were created and reviewed. CONTRAST: IV 100mL [id number] COMPARISON: None. FINDINGS: PULMONARY ARTERIES: No evidence of pulmonary embolism, but small segmental pulmonary emboli in the lower lobes are not excluded due to artifact caused by patient respiratory motion. Chronic enlargement of the central pulmonary arteries. AORTA: Unremarkable. Normal in caliber. No evidence of dissection. GREAT VESSELS OF AORTIC ARCH: Unremarkable. Normal in caliber. No evidence of dissection. LUNGS AND PLEURAL SPACES: Patchy multilobar pulmonary infiltrates, with peripheral groundglass opacities. No mass. No pleural effusion or thickening. No pneumothorax. HEART: Mild cardiomegaly. No pericardial effusion. No signs of right heart strain, ratio of right ventricle to left ventricle measures less than 1. MEDIASTINUM: Unremarkable. No mediastinal or hilar adenopathy. Esophagus is unremarkable. No hiatal hernia. THYROID: Unremarkable. No thyroid lesions. BONES/JOINTS: Diffuse degenerative changes of the spine. No suspicious lytic or blastic abnormality. CT/CTA Chest W/WO Contrast IMPRESSION: 1. Patchy multilobar pulmonary infiltrates, with peripheral groundglass opacities. Findings are consistent with pneumonia, with typical features of COVID 19 infection. 2. No evidence of pulmonary embolism, but small segmental pulmonary emboli in the lower lobes are not excluded due to artifact caused by patient respiratory motion. 3. Cardiomegaly and evidence of chronic pulmonary arterial hypertension. Individualized dose optimization techniques were used for this CT. at 0250 Reported and signed by: Kristopher Pacheco MD Electronically Signed: Kristopher Pacheco MD at 2:49 EDT Tel , Service support ,
== END 2021-06-07 03:21 | disposition home or self-care (01) ==
PROVIDERS: Emergency Provider Emergency Medicine; PCP Internal Medicine
DX: U07.1 COVID-19 (principal); E66.9 Obesity, unspecified
CPT/HCPCS: 71045; 71275; 80053; 83605; 84484; 85025; 85379; 93005; 94640; 96374; 99284; Q9967; A4216; J2405

== ENCOUNTER 2023-12-11 13:06 | Emergency (ER) | payer OTHER, SELFPAY ==
[2023-12-11 13:06] VITALS: BP 141/93; PULSE 114; RESP 16; TEMP 36.6; O2SAT 97; BMI 38.7
--- NOTE | 2023-12-11 13:25 | RAD_ITS ---
HISTORY: chest pain. TECHNIQUE: XR Chest 1 View. COMPARISON: 06/07/2021. FINDINGS: CARDIOMEDIASTINAL BORDERS: Cardiac silhouette within normal limits in size. Mediastinal contour unchanged. LUNGS: Radiographically clear. Low lung volumes. PLEURA: No pleural effusion or pneumothorax seen. OSSEOUS STRUCTURES: Unremarkable. RAD/Chest 1 View (Portable) IMPRESSION: No acute cardiopulmonary process identified. Electronically Signed: Mulu Dejesus MD at 14:22 EST ,
--- NOTE | 2023-12-11 13:25 | EKG12_ITS ---
Test Reason : NEW AFIB Blood Pressure : / mmHG Vent. Rate : 134 BPM Atrial Rate : 000 BPM P-R Int : 000 ms QRS Dur : 084 ms QT Int : 332 ms P-R-T Axes : 000 003 036 degrees QTc Int : 495 ms Atrial fibrillation with rapid ventricular response Abnormal ECG Confirmed by Davin Chauhan ([id number]), news copy editor TEO RIVAS ([id number]) on 12/15/2023 7:04:35 AM Referred By: CHANDA/GARCIA Confirmed By:Davin Chauhan
--- NOTE | 2023-12-11 13:40 | EX.ED.DYSGE1 ---
HPI <HINA Skelton - Last Filed: 12/11/23 16:15> History of Present Illness Chief Complaint: Palpitations Narrative Narrative: Patient presenting today after being sent over from the urgent care due to new onset atrial fibrillation with RVR. She reports that she went to urgent care due to flulike symptoms she has had since Thursday. She reports that multiple members of her household tested positive for influenza. They noticed that she was tachycardic and decided to do an EKG which showed A-fib RVR. She has no prior history of this. She reports that she does have a history of a cardiac murmur and has had dilation of an unknown heart valve 3 times when she was around the age of 29. She does not currently follow with a applications support lead. She denies any chest pain, feelings of racing heartbeat, palpitations, shortness of breath, abdominal pain, nausea, and vomiting. [facility] <HINA Skelton - Last Filed: 12/11/23 16:15> [facility] Home Medications apixaban 5 mg tablet (Eliquis) 5 mg PO BID #60 tabs 12/11/23 [Rx Last Taken Unknown] metoprolol tartrate 50 mg tablet 50 mg PO BID 30 days #60 tabs 12/11/23 [Rx Last Taken Unknown] Allergy/AdvReac Type Severity Reaction Status Date / Time oxycodone [From OxyContin] Allergy Rash Verified 12/11/23 13:08 Surgical History History of hysterectomy Social History Smoking Status: Never smoker ROS <HINA Skelton - Last Filed: 12/11/23 16:15> ROS ED Constitutional Constitutional ED: Denies chills or fever(s) Cardiovascular Cardiovascular: Denies chest pain, palpitations or racing heartbeat Respiratory/Chest Respiratory/Chest: Denies cough or dyspnea Gastrointestinal Gastrointestinal: Denies abdominal pain, nausea or vomiting Musculoskeletal Musculoskeletal: Denies arthralgias or myalgias Integumentary Denies abscess, Abrasions or rash Neurologic Neurologic: Denies weakness EXAM <HINA Skelton - Last Filed: 03/08/24 16:15> Physical Exam Const Vital Signs: 12/11/23 13:06 12/11/23 13:51 12/11/23 15:57 Temperature 98 F 98.8 F Temperature Source Temporal Temporal Pulse Rate 114 H 110 H 109 H Respiratory Rate 16 13 16 Blood Pressure 141/93 H 115/82 H 119/82 H Blood Pressure Mean 109 93 94 Pulse Ox 97 96 96 Oxygen Delivery Method Room Air Room Air Room Air 12/11/23 14:11 12/11/23 15:05 12/11/23 15:19 Temperature 98.2 F Temperature Source Pulse Rate 105 H 91 105 H Respiratory Rate 16 24 H 16 Blood Pressure 119/88 H 109/74 109/74 Blood Pressure Mean 98 85 85 Pulse Ox 98 98 20 Oxygen Delivery Method Positive well nourished, well developed and no apparent distress General Appearance ED: well developed HEENT Reports normocephalic and head/scalp atraumatic Mouth ED: Yes moist mucous membranes normal Eyes PERRL and EOMs intact bilaterally Neck full ROM and supple Chest Wall inspection of chest normal Resp normal respiratory effort and clear to auscultation bilaterally Cardio Rhythm: abnormal rhythm irregularly irregular GI soft to palpation, non-tender, non-distended and no masses Back/Spine normal ROM and normal to inspection Extremity normal to inspection and full ROM Neuro oriented x3, CN's II-XII intact bilaterally, moves all extremities, no focal motor deficits and no sensory deficits noted Sensorium / Orientation: awake and alert Psych mental status grossly normal and thought process normal Skin no rashes or lesions noted and no wounds <Dr. Aguila Justice, DO - Last Filed: 12/11/23 21:54> Physical Exam Const Vital Signs: 12/11/23 13:06 12/11/23 13:51 12/11/23 15:57 Temperature 98 F 98.8 F Temperature Source Temporal Temporal Pulse Rate 114 H 110 H 109 H Respiratory Rate 16 13 16 Blood Pressure 141/93 H 115/82 H 119/82 H Blood Pressure Mean 109 93 94 Pulse Ox 97 96 96 Oxygen Delivery Method Room Air Room Air Room Air 12/11/23 14:11 12/11/23 15:05 12/11/23 15:19 Temperature 98.2 F Temperature Source Pulse Rate 105 H 91 105 H Respiratory Rate 16 24 H 16 Blood Pressure 119/88 H 109/74 109/74 Blood Pressure Mean 98 85 85 Pulse Ox 98 98 20 Oxygen Delivery Method [facility] <HINA Skelton - Last Filed: 12/11/23 16:15> [facility] Narrative Medical decision making narrative: Patient presenting due to new onset A-fib RVR. She had an EKG performed at urgent care due to being tachycardic. Previous history of cardiac murmur and has had a pulmonic heart valve dilation. She has not had any chest pain or shortness of breath. She is well-appearing and in no acute distress. Cardiac workup will be obtained. She will be given Lopressor. she reports that she is recovering from her flulike symptoms and feels much better than she did. She is also asymptomatic with the A-fib. Her heart rate was able to be controlled with the Lopressor, she was also given a dose of p.o. metoprolol prior to discharge. I did speak with applications support lead, Dr. Chauhan who recommends starting patient on Eliquis twice daily and metoprolol tartrate twice daily. He recommends having her follow-up with her PCP on Thursday to ensure rate control and he will follow-up with her as an outpatient for additional cardiac testing. I did speak with her PCP, Dr. Ghotra who reports that he will see her on Thursday. Patient will be discharged home in stable condition and is comfortable with this plan. Return instructions given. Lab Data Attestation: I reviewed the patient's lab results. Labs: Laboratory Results - last 24 hr 12/11/23 12/11/23 13:39 15:54 WBC 7.9 RBC 4.90 Hgb 14.5 Hct 42.9 MCV 87.6 MCH 29.6 MCHC 33.8 RDW Std Deviation 39.8 RDW Coeff of Ángela 12.2 Plt Count 190 MPV 12.1 H Immature Gran % (Auto) 0.300 Neut % (Auto) 50.6 Lymph % (Auto) 40.3 Mccone % (Auto) 7.3 Eos % (Auto) 1.0 Baso % (Auto) 0.5 Absolute Neuts (auto) 4.0 Absolute Lymphs (auto) 3.20 Nucleated RBC % 0 Sodium 143 Potassium 3.3 L Chloride 109 H Carbon Dioxide 29.0 Anion Gap 5 BUN 12 Creatinine 0.65 Estim Creat Clear Calc 141.34 Est GFR (MDRD) Af Amer 125 Est GFR (MDRD) Non-Af 104 BUN/Creatinine Ratio 18.5 Glucose 113 H Calcium 8.9 Troponin I High Sens 6 6 TSH 0.60 Radiography X-Ray: Read by ED Physician and Read by Radiologist Diagnostic Testing: Clinical Impression(s) from Imaging Studies Chest X-Ray 12/11/23 13:25 IMPRESSION: No acute cardiopulmonary process identified. Electronically Signed: Mulu Dejesus MD at 14:22 EST , EKG Initial EKG: Comments: 134 bpm, atrial fibrillation with RVR, no ST elevation, reviewed and interpreted by attending ED physician <Dr. Aguila Justice, DO - Last Filed: 12/11/23 21:54> [facility] MDM Narrative Medical decision making narrative: Patient presenting due to new onset A-fib RVR. She had an EKG performed at urgent care due to being tachycardic. Previous history of cardiac murmur and has had a pulmonic heart valve dilation. She has not had any chest pain or shortness of breath. She is well-appearing and in no acute distress. Cardiac workup will be obtained. She will be given Lopressor. she reports that she is recovering from her flulike symptoms and feels much better than she did. She is also asymptomatic with the A-fib. Her heart rate was able to be controlled with the Lopressor, she was also given a dose of p.o. metoprolol prior to discharge. I did speak with applications support lead, Dr. Chauhan who recommends starting patient on Eliquis twice daily and metoprolol tartrate twice daily. He recommends having her follow-up with her PCP on Thursday to ensure rate control and he will follow-up with her as an outpatient for additional cardiac testing. I did speak with her PCP, Dr. Ghotra who reports that he will see her on Thursday. Patient will be discharged home in stable condition and is comfortable with this plan. Return instructions given. Attending note: Patient seen and evaluated with security officer supervisor. I perform my own [id number] evaluation. I agree with the plan of work-up. Sent from PCP office for A-fib with RVR new onset. Patient exposed to influenza with symptoms week ago, she did not get tested. Symptoms are improving only slight cough. She follow-up in the office found to have tachycardia with EKG confirming A-fib. I spoke with provider prior to arrival. 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 Her last procedure and surgery was 2012. [facility] cardiology that she does not currently follow stating he retired. No stroke history. No hypertension diabetes or heart failure history. EKG A-fib with RVR treated with IV Lopressor x 2 heart rate controlled. Oral metoprolol 50 mg was ordered. CHADS2 Vascore is a 1. We discussed with cardiology on-call Dr. Chauhan discussed her history will start Eliquis and continue metoprolol 50 mg twice daily. Recommend follow-up with her PCP for heart rate check on Thursday. She initially states she would like to follow-up with [facility] cardiology. She will get this referred through her PCP or follow-up with Dr. Chauhan locally. This also discussed with her PCP. All questions were answered. Lab Data Labs: Laboratory Results - last 24 hr 12/11/23 12/11/23 13:39 15:54 WBC 7.9 RBC 4.90 Hgb 14.5 Hct 42.9 MCV 87.6 MCH 29.6 MCHC 33.8 RDW Std Deviation 39.8 RDW Coeff of Ángela 12.2 Plt Count 190 MPV 12.1 H Immature Gran % (Auto) 0.300 Neut % (Auto) 50.6 Lymph % (Auto) 40.3 Mccone % (Auto) 7.3 Eos % (Auto) 1.0 Baso % (Auto) 0.5 Absolute Neuts (auto) 4.0 Absolute Lymphs (auto) 3.20 Nucleated RBC % 0 Sodium 143 Potassium 3.3 L Chloride 109 H Carbon Dioxide 29.0 Anion Gap 5 BUN 12 Creatinine 0.65 Estim Creat Clear Calc 141.34 Est GFR (MDRD) Af Amer 125 Est GFR (MDRD) Non-Af 104 BUN/Creatinine Ratio 18.5 Glucose 113 H Calcium 8.9 Troponin I High Sens 6 6 TSH 0.60 Radiography Diagnostic Testing: Clinical Impression(s) from Imaging Studies Chest X-Ray 12/11/23 13:25 IMPRESSION: No acute cardiopulmonary process identified. Electronically Signed: Mulu Dejesus MD at 14:22 EST , Discharge Plan Triage Chief Complaint: Palpitations ED Midlevel Provider: Geri Mcfadden ED Provider: Aguila Justice Dx/Rx/DC Orders Clinical Impression: Atrial fibrillation with RVR Instructions: ED AFIB Prescriptions: New Eliquis 5 mg tablet 5 mg PO BID Qty: 60 0RF metoprolol tartrate 50 mg tablet 50 mg PO BID 30 Days Qty: 60 0RF Primary Care Provider: Kevyn Wu Referrals: Davin Chauhan MD [Med Staff - Active Staff] - 3-5 Days Kevyn Wu MD [Primary Care Provider] - 3-5 Days Activity Restrictions/Additional Instructions: Please follow-up with your PCP on Thursday to have your heart rate checked. Please follow-up with cardiology, if you cannot get in with the [facility], our applications support lead will see you. Disposition Disposition: Home, Self Care Discharge Date/Time: 12/11/23 16:23
[2023-12-11] MEDS: Metoprolol Tartrate 5 MG/5 ML Vial IV ×2 (13:45→13:54)
[2023-12-11 13:51] VITALS: BP 115/82; PULSE 110; RESP 13; TEMP 37.1; O2SAT 96
[2023-12-11 13:58] LABS: Basophil# 0.04 X10^3/uL; Basophil% 0.5 % (0-1); Eosinophil# 0.08 X10^3/uL; Hematocrit 42.9 % (37-47); Hemoglobin 14.5 g/dL (12.0-15.0); Lymphocyte % 40.3 % (19-41); Mean Corp Hgb Conc 33.8 g/dL (32-36); Mean Corpuscular Hgb 29.6 pg (27.0-32.0); Mean Corpuscular Volume 87.6 fL (81-99); Mean Platelet Vol. 12.1 fl (6.2-12.0); Monocyte# 0.58 X10^3/uL; Monocyte% 7.3 % (0-10); NRBC Flagged by Analyzer 0 % (0-5); Neutrophil # 4.02 X10^3/uL (2.7-7.7); Neutrophil % 50.6 % (47-70); Platelet Count 190 K/mm3 (150-450); RBC Distribution Width CV 12.2 % (11.6-14.6); RBC Distribution Width SD 39.8 fl (35.1-43.9); White Blood Count 7.9 K/mm3 (4.4-11.0)
[2023-12-11 14:11] VITALS: BP 119/88; PULSE 105; RESP 16; O2SAT 98
[2023-12-11 14:17] LABS: Anion Gap 5 (5-15); BUN 12 mg/dL (7-18); BUN/Creat Ratio 18.5 RATIO (10-20); Calcium,Total 8.9 mg/dL (8.5-10.1); Chloride 109 mmol/L (98-107); Creatinine, Serum 0.65 mg/dL (0.55-1.02); EST Glomerular Filtration Rate 104 mL/min (>60); Est Glom Filt Rate - Afr Amer 125 mL/min (>60); Estimated Creatinine Clearance 141.34 ml/min; Glucose 113 mg/dL (74-106); Potassium 3.3 mmol/L (3.5-5.1); Sodium Level 143 mmol/L (136-145); Troponin-I HS (w/2H Reflex) 6 pg/mL (3.0-54.0)
[2023-12-11 15:05] VITALS: BP 109/74; PULSE 91; RESP 24; O2SAT 98
[2023-12-11] MEDS: Metoprolol Tartrate 25 MG Tablet 50 MG PO (15:05)
[2023-12-11] MEDS: Potassium Chloride Oral Tablet 20 MEQ 40 MEQ PO (15:05)
[2023-12-11 15:19] VITALS: BP 109/74; PULSE 105; RESP 16; TEMP 36.8; O2SAT 20
[2023-12-11 15:43] LABS: Reflex Troponin-HS? (from REC) Y
[2023-12-11 15:57] VITALS: BP 119/82; PULSE 109; RESP 16; O2SAT 96
[2023-12-11 16:28] LABS: Troponin-I HS 6 pg/mL (3.0-54.0)
== END 2023-12-11 16:23 | disposition home or self-care (01) ==
PROVIDERS: Physician Assistant; Emergency Provider Emergency Medicine; PCP Internal Medicine; Visit Provider Emergency Medicine
DX: I48.91 Unspecified atrial fibrillation (principal); Z79.01 Long term (current) use of anticoagulants; Z79.899 Other long term (current) drug therapy
CPT/HCPCS: 71045; 80048; 84443; 84484; 85025; 93005; 99285; A4216

== ENCOUNTER → 2024-02-10 | Outpatient (CLI) | payer OTHER, SELFPAY ==
--- NOTE | 2024-02-10 12:42 | ECHOCS_ITS ---
Reason For Study: Afib/Flutter Procedure This was a 2D Doppler, Color Flow transthoracic echocardiogram. The study was technically difficult. Contrast injection was performed. Exam performed in department. Left Ventricle Normal size and thickness. The left ventricular ejection fraction is 60 %. Normal diastololic function. Right Ventricle Normal right ventricle. Atria The left atrium is moderately enlarged. The right atrium is mildly enlarged. Bubble contrast study is negative for PFO/ASD. Mitral Valve Mild (1+) mitral valve insufficiency. Tricuspid Valve Trivial tricuspid valve insufficiency. Normal pulmonary artery pressure. Aortic Valve Trisinus/trileaflet aortic valve. Pulmonic Valve Mild stenosis of the pulmonic valve. Great Vessels Mildly dilated aortic root. Pericardium/Pleural No pericardial effusion. Medication 22 gauge I.V. with prn adaptor inserted into right arm. Diluted definity 2.5ml given slow IV push to enhance endocardial definition. Performed a rapid injection of agitated mix of 9 cc saline and 1cc air to assess for atrial septal defect. MMode/2D Measurements & Calculations LVIDd: 5.6 cm IVSd: 0.98 cm Ao root diam: 3.6 cm LVIDs: 4.0 cm LVPWd: 0.89 cm LA dimension: 4.1 cm RVDd: 3.7 cm FS: 28.8 % LAV(MOD-bp): 70.9 ml LVAd ap4: 34.7 cm2 SV(MOD-sp4): 64.3 ml LAV(MOD-bp) Indexed: 30.9 ml/m2 LVLd ap4: 8.1 cm LAV(MOD-sp2): 64.8 ml EDV(MOD-sp4): 121.2 ml LAV(MOD-sp4): 65.3 ml EDV(sp4-el): 125.6 ml LVAs ap4: 21.6 cm2 LVLs ap4: 6.7 cm ESV(MOD-sp4): 56.9 ml ESV(sp4-el): 59.1 ml EF(MOD-sp4): 53.0 % EF(sp4-el): 52.9 % SV(sp4-el): 66.4 ml LA A4 area: 22.9 cm2 RA A4 area: 18.7 cm2 TAPSE: 1.9 cm Time Measurements MV dec time: 0.19 sec Doppler Measurements & Calculations MV E max masood: 77.3 cm/sec Lat Peak E' Masood: 13.4 cm/sec Med Peak E' Masood: 9.5 cm/sec MV A max masood: 71.8 cm/sec E/E' lat: 5.8 E/E' med: 8.2 MV E/A: 1.1 MV V2 max: 95.0 cm/sec MV P1/2t max masood: 95.0 cm/sec Ao V2 max: 124.5 cm/sec MV max P.6 mmHg MV P1/2t: 71.0 msec Ao max P.2 mmHg MV V2 mean: 53.0 cm/sec Ao V2 mean: 83.8 cm/sec MV mean P.3 mmHg MV dec slope: 392.2 cm/sec2 Ao mean P.3 mmHg MV V2 VTI: 27.0 cm MVA(P1/2t): 3.1 cm2 Ao V2 VTI: 29.8 cm AV (velocity ratio): 0.90 LV V1 max: 102.3 cm/sec PA V2 max: 265.9 cm/sec TR max masood: 186.0 cm/sec LV V1 max P.2 mmHg PA V2 mean: 163.5 cm/sec TR max P.8 mmHg LV V1 mean P.3 mmHg LV V1 mean: 70.3 cm/sec LV V1 VTI: 26.8 cm ECHO/Echo Complete W/ Contrast Interpretation Summary The left ventricular ejection fraction is 60 %. The left atrium is moderately enlarged. The right atrium is mildly enlarged. Bu bble contrast study is negative for PFO/ASD. Mild (1+) mitral valve insufficiency. Mild stenosis of the pulmonic valve. Mildly dilated aortic root. Ordering Physician: Adiel Peraza Referring Physician: Adiel Peraza Performed By: Derrick Palacios RCS
== END | disposition home or self-care (01) ==
LOC: CVS 12:41
PROVIDERS: PCP Internal Medicine; Referring Provider Internal Medicine Cardiovascular Disease; Visit Provider Internal Medicine Cardiovascular Disease
DX: I37.0 Nonrheumatic pulmonary valve stenosis (principal); I48.91 Unspecified atrial fibrillation
CPT/HCPCS: 93306; Q9957; A4216; C8929

== ENCOUNTER 2025-01-27 06:38 | Emergency (ER) | payer OTHER, BC, SELFPAY ==
[2025-01-27 06:39] VITALS: BP 142/81; PULSE 70; RESP 15; TEMP 36.9; O2SAT 98; BMI 40.7
--- NOTE | 2025-01-27 06:43 | RAD_ITS ---
PROCEDURE: ANKLE MIN 3 VIEWS 01/27/2025 REASON FOR EXAM: TRAUMA TECHNIQUE: 3 views of the left ankle COMPARISON: None available FINDINGS: No fracture or dislocation. Soft tissue swelling about the ankle. Joint spaces appear within limits. Large enthesophyte spur formation plantar surface of the calcaneus. RAD/Ankle min 3 Views IMPRESSION: No fracture or dislocation. If symptoms persist, may follow-up with repeat jaden ging in 7-10 days as warranted. Soft tissue swelling about the ankle. Reading Location: [id number]
--- NOTE | 2025-01-27 07:28 | EX.ED.DYSGE1 ---
HPI History of Present Illness Chief Complaint: Lower Extremity Injury Narrative Narrative: Patient is a 49-year-old female with past medical history of pulmonary valve stenosis, ASD, history of murmur, BMI of 40.7 who presents to the emergency department chief complaint of left ankle pain. Patient states that she was at work earlier this morning around 4 AM when a air hose became wrapped around her left ankle she states that she tried to kick this off and notes that she hit her ankle on a piece of equipment causing her pain. States that her work advised that she comes here to be evaluated. Patient denies any other injuries or pain. [facility] Medical History First detected episode of atrial fibrillation History of pulmonary valve stenosis Obesity Pulmonary valve stenosis Atrial fibrillation with rapid ventricular response ASD (atrial septal defect) Pulmonary valve disorder COVID History of cardiac murmur Home Medications ?Medication ?Instructions ?Recorded ?Last Taken ?Type aspirin 81 mg tablet,delayed 81 mg PO DAILY #30 tabs 01/27/24 Unknown Rx release (Adult Aspirin Regimen) metoprolol tartrate 50 mg tablet 50 mg PO BID 01/27/24 Unknown History Allergy/AdvReac Type Severity Reaction Status Date / Time oxycodone (From OxyContin) Allergy Rash Verified 01/27/25 06:39 Surgical History History of Amplatzer atrial septal defect closure Hx of atrial septal defect repair (~01/13/06) Hx of valvuloplasty (~07/16/90) History of hysterectomy Social History Smoking Status: Never smoker alcohol intake: current alcohol intake frequency: holidays/special occasions only substance use type: does not use ROS ROS ED ROS Narrative Constitutional: denies any fevers or chills Neurological: Denies numbness, weakness, tingling Musculoskeletal: Complains of left ankle pain as noted above Skin: Denies rashes or lesions EXAM Physical Exam Narrative Exam Narrative: General: Patient was lying in bed rest comfortably did not appear to be in acute distress Head: Atraumatic, normocephalic Eyes: PERRL bilateral, EOMI bilateral, no conjunctival injection noted Neck: Soft, supple, trachea midline Cardiovascular: Regular rate Extremities: DP pulses +2/4 in the bilateral lower extremities, +4/5 strength noted in the bilateral upper and lower extremities Musculoskeletal: Patient has some mild tenderness palpation over the medial malleolus, no tenderness palpation proximally or distally in her foot Neurological: Patient follow commands knew that she was at [facility] year is 2024 sensation grossly intact Skin: Warm, dry, intact no rashes lesions noted, patient does have some swelling noted on the medial aspect of her left ankle. Const Vital Signs: 01/27/25 06:39 Temperature 98.4 F Temperature Source Oral Pulse Rate 70 Respiratory Rate 15 Blood Pressure 142/81 H Blood Pressure Mean 101 Pulse Ox 98 Oxygen Delivery Method Room Air MDM MDM MDM Narrative Medical decision making narrative: Patient is a 49-year-old female who presented to the emergency department chief complaint of left ankle pain after hitting it on a piece of equipment while at work. On the differential diagnose includes but not limited to contusion, fracture, ligamentous injury. Once workup is obtained reviewed she will be reevaluated. Patient's x-ray of her ankle reviewed by myself and by radiology showed no acute fracture or dislocation there is some soft tissue swelling noted about the ankle. I discussed results with patient she like to go home this point time. I offered her crutches and a removable splint and she states that she does not need this. She was advised to rotate Tylenol and ibuprofen [id number] as well as ice and elevate. She is encouraged to return with worsening symptoms or concerns otherwise she is to follow-up in the outpatient setting. All question concerns answered she was discharged home in stable condition. Radiography Diagnostic Testing: Clinical Impression(s) from Imaging Studies Ankle X-Ray 01/27/25 06:43 IMPRESSION: No fracture or dislocation. If symptoms persist, may follow-up with repeat imaging in 7-10 days as warranted. Soft tissue swelling about the ankle. Reading Location: [id number] Discharge Plan Triage Chief Complaint: Lower Extremity Injury ED Provider: Lorenzo Nowak Dx/Rx/DC Orders Clinical Impression: Ankle pain, left Prescriptions: No Action metoprolol tartrate 50 mg tablet 50 mg PO BID aspirin [Adult Aspirin Regimen] 81 mg tablet,delayed release (DR/EC) 81 mg PO DAILY Qty: 30 11RF Primary Care Provider: Kevyn Wu Referrals: Kevyn Wu MD [Primary Care Provider] - [facility] [facility] [Group of Physicians] - Activity Restrictions/Additional Instructions: Follow-up at critical access [facility] for this injury. Ice, elevate, rotate Tylenol and ibuprofen [id number] when you do this he can take something every 3 hours. Max dose of Tylenol 4000 mg and max dose of ibuprofen 3200 mg in 24 hours. Return with worsening symptoms any concerns. Print Language: Setswana Disposition Disposition: Home, Self Care
[2025-01-27] MEDS: Acetaminophen 500 MG Tablet 1000 MG PO (07:59)
== END 2025-01-27 08:31 | disposition home or self-care (01) ==
PROVIDERS: Emergency Provider Emergency Medicine; PCP Internal Medicine; Visit Provider Emergency Medicine
DX: M25.572 Pain in left ankle and joints of left foot (principal); Z68.41 Body mass index [BMI] 40.0-44.9, adult; E66.9 Obesity, unspecified; Z79.82 Long term (current) use of aspirin; Z79.899 Other long term (current) drug therapy; W22.09XA Striking against other stationary object, initial encounter; Y99.0 Civilian activity done for income or pay
CPT/HCPCS: 73610; 99282

== ENCOUNTER → 2025-04-05 | Outpatient (CLI) | payer BC, SELFPAY ==
--- NOTE | 2025-04-05 09:54 | ECHOCS_ITS ---
Reason For Study Reason For Study: s/pValvuloplasty Procedure This was a 2D Doppler, Color Flow transthoracic echocardiogram. The study was technically difficult. Contrast injection was performed. Exam performed in department. Left Ventricle Normal size and thickness. The LV ejection fraction is 65 %. No evidence for diastolic dysfunction. Right Ventricle Normal right ventricle. Atria There is moderate biatrial dilatation. Patent foramen ovale. Mitral Valve Trivial mitral valve insufficiency. Tricuspid Valve Mild tricuspid valve insufficiency. Right ventricular systolic pressure estimated to be 28 mmHg. Aortic Valve Trisinus/trileaflet aortic valve. Pulmonic Valve Mildly elevated gradient across the pulmonic valve. Mean peak gradient 8 mmHg. Mild pulmonic stenosis. Great Vessels Normal sized aortic root. Pericardium/Pleural No pericardial effusion. Medication 22 gauge I.V. with prn adaptor inserted into left arm. Diluted definity 2ml given slow IV push to enhance endocardial definition. MMode/2D Measurements & Calculations LVIDd: 4.8 cm IVSd: 0.80 cm Ao root diam: 3.3 cm LVIDs: 3.6 cm LVPWd: 0.81 cm RVDd: 4.0 cm FS: 25.6 % LAV(MOD-bp): 60.2 ml LVAd ap4: 30.6 cm2 SV(MOD-sp4): 54.3 ml LAV(MOD-bp) Indexed: 25.8 ml/m2 LVLd ap4: 8.3 cm SI(MOD-sp4): 23.3 ml/m2 LAV(MOD-sp2): 53.3 ml EDV(MOD-sp4): 92.5 ml LAV(MOD-sp4): 55.1 ml EDV(sp4-el): 95.4 ml LVAs ap4: 17.7 cm2 LVLs ap4: 6.8 cm ESV(MOD-sp4): 38.2 ml ESV(sp4-el): 38.7 ml EF(MOD-sp4): 58.7 % EF(sp4-el): 59.4 % SV(sp4-el): 56.7 ml LA A4 area: 21.3 cm2 LA dimension(2D): 4.6 cm RA A4 area: 17.9 cm2 TAPSE: 2.2 cm Time Measurements MV dec time: 0.19 sec Doppler Measurements & Calculations MV E max masood: 80.3 cm/sec Lat Peak E' Masood: 15.4 cm/sec Med Peak E' Masood: 10.3 cm/sec MV A max masood: 76.5 cm/sec E/E' lat: 5.2 E/E' med: 7.8 MV E/A: 1.0 MV V2 max: 100.0 cm/sec MV P1/2t max masood: 100.6 cm/sec Ao V2 max: 140.0 cm/sec MV max P.0 mmHg MV P1/2t: 80.5 msec Ao max P.8 mmHg MV V2 mean: 62.0 cm/sec MV dec slope: 366.3 cm/sec2 Ao V2 mean: 97.5 cm/sec MV mean P.8 mmHg MVA(P1/2t): 2.7 cm2 Ao mean P.3 mmHg MV V2 VTI: 32.1 cm Ao V2 VTI: 34.4 cm AV (velocity ratio): 0.79 LV V1 max: 108.0 cm/sec PA V2 max: 221.5 cm/sec TR max masood: 242.4 cm/sec LV V1 max P.7 mmHg PA V2 mean: 152.9 cm/sec TR max P.5 mmHg LV V1 mean P.5 mmHg PA mean PG (full): 8.4 mmHg LV V1 mean: 74.6 cm/sec PA V2 VTI: 60.3 cm LV V1 VTI: 27.1 cm ECHO/Echo Complete W/ Contrast Interpretation Summary The LV ejection fraction is 65 %. No evidence for diastolic dysfunction. There is moderate biatrial dilatation. Patent foramen ovale. Mild tricuspid valve insufficiency. Right ventricular systolic pressure estimated to be 28 mmHg. Mildly elevated gradient across the pulmonic valve. Mean peak gradient 8 mmHg. Mild pulmonic stenosis. Ordering Physician: Adiel Peraza Referring Physician: Adiel Peraza Performed By: Derrick Palacios RCS
== END | disposition home or self-care (01) ==
LOC: CVS 09:53
PROVIDERS: PCP Internal Medicine; Referring Provider Internal Medicine Cardiovascular Disease; Visit Provider Internal Medicine Cardiovascular Disease
DX: Z09 Encounter for follow-up examination after completed treatment for conditions other than malignant neoplasm (principal); Z86.79 Personal history of other diseases of the circulatory system
CPT/HCPCS: 93306; Q9957; A4216; C8929